=== PATIENT | male | born 1970 ===

== ENCOUNTER 2019-02-08 09:46 | Day surgery (SDC) | payer OTHER ==
--- NOTE | 2019-02-07 14:00 | NUR ---
[id number]
[2019-02-08] VITALS (11 sets, daily range): BP systolic 136–169; BP diastolic 78–96
[~2019-02-08] VITALS: Ht 165.1 cm; Wt 69.4 kg
[~2019-02-08 09:46] MED LIST: NKM; ceFAZolin 1gm IVPB IVPB ONE; celeBREX 200mg Cap **SURGERY PATIENTS ONLY ORAL ONE; oxyCONTIN 20mg tab ORAL ONE
[2019-02-08] MEDS ORDERED: oxyCONTIN 20mg tab ORAL ONE (11:06)
[2019-02-08] MEDS ORDERED: celeBREX 200mg Cap **SURGERY PATIENTS ONLY ORAL ONE (11:06)
[2019-02-08] MEDS ORDERED: LR 1000ml 1,000 ML IVLG SCH (11:30)
[2019-02-08] MEDS ORDERED: Ketorolac 30mg Inj IV PRN (11:30)
[2019-02-08] MEDS ORDERED: fentaNYL 100 mcg/2 mL IV PRN (11:30)
[2019-02-08] MEDS ORDERED: Hydromorphone 0.5mg/0.5ml inj IVP PRN (11:30)
[2019-02-08] MEDS ORDERED: LORazepam Inj 2mg/ml 1ml IV PRN (11:30)
[2019-02-08] MEDS ORDERED: DiphenhydrAMINE 50mg/ml Inj IVP PRN (11:30)
[2019-02-08] MEDS ORDERED: Metoclopramide 10mg/2ml Inj IVP PRN (11:30)
[2019-02-08] MEDS ORDERED: Midazolam 2mg/2ml Inj IVP PRN (11:30)
--- NOTE | 2019-02-08 11:30 | Anethesia Preoperative Eval ---
Anesthesia Pre-op PMH/ROS General Date of Evaluation: Feb 08, 2019 Anesthesiologist: Mike ASA Score: ASA 2 Mallampati Score Class I : Soft palate, uvula, fauces, pillars visible Class II: Soft palate, uvula, fauces visible Class III: Soft palate, base of uvula visible Class IV: Only hard plate visible Mallampati Classification: Class II Surgeon: Myron Diagnosis: Left shouldere pain Surgical Procedure: Left shoulder arthroscopy Anesthesia History: none Family History: no anesthesia problems Allergies: Coded Allergies: Shrimp (Verified Allergy, Mild, 02/07/19) SKIN RASH AND BLISTERS Medications: see eMAR Patient NPO?: Yes NPO Date: Feb 07, 2019 NPO Time: 22:00 Past Medical History Cardiovascular: Denies: HTN, CAD, IA, valve dz, arrhythmia, other Pulmonary: Denies: asthma, COPD, FIDEL, other Gastrointestinal/Genitourinary: Denies: GERD, CRI, ESRD, other Neurologic/Psychiatric: Denies: dementia, CVA, depression/anxiety, TIA, other Endocrine: Denies: DM, hypothyroidism, steroids, other HEENT: Denies: cataract (L), cataract (R), glaucoma, HUGHES (L), HUGHES (R), other Hematology/Immune: Denies: anemia, DVT, bleeding disorder, other Musculoskeletal/Integumentary: Reports: OA; Denies: RA, DJD, DDD, edema, other PSxH Narrative: Denies Anesthesia Pre-op Phys. Exam Physician Exam Last Vital Signs Date Time Temp Pulse Resp B/P (MAP) Pulse Ox O2 Delivery O2 Flow Rate FiO2 02/08/19 11:00 97.7 49 18 139/78 100 Room Air Constitutional: NAD Cardiovascular: RRR Respiratory: CTA Airway Exam Mallampati Score: Class II MO: full ROM: full Teeth: intact Anesthesia Pre-op A/P Labs see chart Studies Pre-op Studies: EKG - sr Risk Assessment & Plan Assessment: ASA II Plan: GA Status Change Before Surgery: No Pre-Antibiotics Drug: Ancef 1g Given Within 1 Hr of Incision: Yes Rachael Coelho MD Feb 08, 2019 11:30
[2019-02-08] MEDS ORDERED: Midazolam 2mg/2ml Inj ONE (12:21)
[2019-02-08] MEDS ORDERED: Lidocaine 1% MPF 10mg/ml 5ml ONE (12:21)
[2019-02-08] MEDS ORDERED: fentaNYL 100 mcg/2 mL ONE (12:21)
[2019-02-08] MEDS ORDERED: Propofol 200mg/20ml IV ONE (12:21)
[2019-02-08] MEDS ORDERED: Dexamethasone 4mg/ml vial ONE (12:22)
[2019-02-08] MEDS ORDERED: Metoclopramide 10mg/2ml Inj ONE (12:22)
[2019-02-08] MEDS ORDERED: Ketorolac 30mg Inj ONE ×2 (12:23→12:35)
--- NOTE | 2019-02-08 12:27 | Operative Note - PDOC ---
Operative Note Operative Note Pre-op Diagnosis: left shoulder impingement Procedure: see op report Post-op Diagnosis: same as pre-op plus Operative Findings: consistent w/pre-op dx studies Anesthesia: MAC Specimen: none Complications: none Condition: stable Estimated Blood Loss: none Implant(s) used?: No Anish Sanches MD Feb 08, 2019 12:27
--- NOTE | 2019-02-08 12:27 | Pre-Procedure Note/Attestation ---
Pre-Procedure Note/Attestation Complete Prior to Procedure Planned Procedure: left Procedure Narrative: shoulder arthroscopy, sad Indications for Procedure Pre-Operative Diagnosis: left shoulder impingement Attestation I attest that I discussed the nature of the procedure; its benefits; risks and complications; and alternatives (and the risks and benefits of such alternatives ), prior to the procedure, with the patient (or the patient's legal fraud representative). I attest that, if there was a reasonable possibility of needing a blood transfusion, the patient (or the patient's legal fraud representative) was given the [facility] standardized written summary, pursuant to the Naun Christina Blood Safety Act ([place] Health and Safety Code # 1645, as amended). I attest that I re-evaluated the patient just prior to the surgery and that there has been no change in the patient's H&P, except as documented below: Anish Sanches MD Feb 08, 2019 12:27
[2019-02-08] MEDS ORDERED: HYDROmorphone 1mg/ml Carpuject SUBQ PRN (12:30)
[2019-02-08] MEDS ORDERED: D5 1/2NS 1,000 ML IV SCH (12:30)
[2019-02-08] MEDS ORDERED: Tylenol #3 tab (300mg/30mg) ORAL PRN (12:30)
[2019-02-08] MEDS ORDERED: HYDROcodone/Acetamin 5/325 tab ORAL PRN (12:30)
[2019-02-08] MEDS ORDERED: Bupivacaine w/Epi 0.5% 30ml Vial INJ ONE (12:36)
[2019-02-08] MEDS ORDERED: Duramorph PF 5mg/10ml amp ONE (12:36)
[2019-02-08] MEDS ORDERED: Kenalog-10 5ml Inj ONE (12:37)
[2019-02-08] MEDS ORDERED: Sterile Water Irrig 1000ml IRRIG ONE (13:00)
[2019-02-08] MEDS ORDERED: Rocuronium Bromide 50mg/5ml Inj IV ONE (13:00)
[2019-02-08] MEDS ORDERED: NS Irrig 1000ml ONE (13:00)
[2019-02-08] MEDS ORDERED: LR 1000ml ONE (13:00)
[2019-02-08] MEDS ORDERED: EPINEPHrine 1mg/1ml Amp ONE (13:00)
[2019-02-08] MEDS ORDERED: NS Irrig 4000ml IRRIG ONE (13:46)
--- NOTE | 2019-02-08 14:26 | 48 Hour Post Anesthesia Eval ---
Post Anesthesia Evaluation Procedure: Left shoulder arthrosocpy Date of Evaluation: Feb 08, 2019 Airway: patent Nausea: No Vomiting: No Pain Intensity: 0 Hydration Status: adequate Cardiopulmonary Status: at baseline Mental Status/LOC: patient returned to baseline Post-Anesthesia Complications: 0 Follow-up care needed: ready to discharge Rachael Coelho MD Feb 08, 2019 14:26
--- NOTE | 2019-02-08 14:26 | Immediate Post-Op Evaluation ---
Immediate Post-Op Evalulation Immediate Post-Op Evalulation Procedure: Left shoulder arthrosocpy Date of Evaluation: Feb 08, 2019 Time of Evaluation: 14:25 IV Fluids: 500 Blood Products: 0 Estimated Blood Loss: min Urinary Output: 0 Blood Pressure Systolic: 145 Blood Pressure Diastolic: 80 Pulse Rate: 72 Respiratory Rate: 16 O2 Sat by Pulse Oximetry: 99 Temperature (Fahrenheit): 97.3 Pain Score (1-10): 0 Nausea: No Vomiting: No Complications 0 Patient Status: awake, reacts, patent, none Hydration Status: adequate Drug: Ancef 1g Given Within 1 Hr of Incision: Yes Rachael Coelho MD Feb 08, 2019 14:26
--- NOTE | 2019-02-08 20:30 | Operative Note - Dictated ---
DATE OF OPERATION: 02/08/2019 PREOPERATIVE DIAGNOSES: 1. Left shoulder rotator cuff tendinosis. 2. Left shoulder impingement syndrome. POSTOPERATIVE DIAGNOSES: 1. Left shoulder rotator cuff tendinosis. 2. Left shoulder impingement syndrome. PROCEDURE: 1. Left shoulder diagnostic arthroscopy. 2. Left shoulder subacromial decompression bursectomy. SURGEON: Anish Sanches M.D. ANESTHESIA: Interscalene with general. INDICATION FOR PROCEDURE: The patient is a pleasant 48-year-old gentleman continued to have left shoulder pain. The patient failed conservative treatment. He had MRI, which showed moderate rotator cuff tendinosis, bursitis. He failed conservative treatment, elected to undergo left shoulder diagnostic arthroscopy, subacromial decompression bursectomy. Risks, limitations, expectations, and complications of the procedure were discussed in detail. All questions were addressed. DESCRIPTION OF PROCEDURE: After informed consent was obtained, the patient was brought to the operating room. The patient was placed under interscalene block. Left shoulder was prepped and draped in a sterile manner. Time-out was performed. Inferolateral stab incision was then made in the glenoid. Camera was then placed in the glenohumeral joint. There is no significant chondral damage. The anterior labrum was intact along with the subscap. Superior labrum was intact along the biceps. Undersurface of the rotator cuff was intact. At this point, the camera was placed in the subacromial space. There was hypertrophic bursal tissue, which was debrided to visualize the anterior of the acromion. Acromioplasty was started from lateral to medial and completed from posterior to anterior. Once that was done, the instruments were removed. Portal sites were closed with 3-0 Monocryl sutures. Steri-Strips and sterile dressing were applied. The patient was awoken and taken to recovery room with stable vital signs. ESTIMATED BLOOD LOSS: None. COMPLICATIONS: None. SPECIMENS: None. IMPLANTS: None. Anish Sanches M.D. DR: Kristy JOB#: [id number] CC:
== END 2019-02-08 16:25 | disposition home or self-care (01) ==
LOC: SUR 09:46
DX: M77.9 Enthesopathy, unspecified (principal); M75.42 Impingement syndrome of left shoulder; M19.90 Unspecified osteoarthritis, unspecified site; Z91.013 Allergy to seafood
CPT/HCPCS: 29822; J0171; J0690; J1100; J1885; J2250; J2405; J2704; J2765; J3010; J3301; 94003; 94150